=== PATIENT | female | born 1935 | race Caucasian/White ===

== ENCOUNTER 2017-05-12 14:17 | Outpatient (CLI) | payer OTHER ==
[~2017-05-12 14:17] MED LIST: HYDR-4100 PO; LEVO75TA7 PO; LISI-600 PO; LOP600 PO
== END 2017-05-12 19:02 | disposition home or self-care (01) ==
LOC: SRD 14:17
PROVIDERS: ATTEND Family Medicine
DX: S43.421A Sprain of right rotator cuff capsule, initial encounter (principal); M19.011 Primary osteoarthritis, right shoulder; X58.XXXA Exposure to other specified factors, initial encounter; Y93.89 Activity, other specified; Y92.89 Other specified places as the place of occurrence of the external cause; Y99.8 Other external cause status
CPT/HCPCS: 73030

== ENCOUNTER 2017-11-18 10:02 | Outpatient (CLI) | payer OTHER | END 2017-11-18 21:22 | disposition home or self-care (01) | LOC: SMA 10:02 | PROVIDERS: ATTEND Family Medicine | DX: Z12.31 Encounter for screening mammogram for malignant neoplasm of breast (principal) | CPT/HCPCS: G0202 ==

== ENCOUNTER 2018-03-15 08:41 | Outpatient (CLI) | payer OTHER | END 2018-03-15 19:47 | disposition home or self-care (01) | LOC: SUS 08:41 | PROVIDERS: ATTEND Family Medicine | DX: N28.1 Cyst of kidney, acquired (principal); K59.00 Constipation, unspecified; I10 Essential (primary) hypertension; E03.9 Hypothyroidism, unspecified | CPT/HCPCS: 74018; 76700-TC ==

== ENCOUNTER 2018-11-19 10:00 | Outpatient (CLI) | payer OTHER | END 2018-11-19 18:06 | disposition home or self-care (01) | LOC: SMA 10:00 | PROVIDERS: ATTEND Family Medicine | DX: Z12.31 Encounter for screening mammogram for malignant neoplasm of breast (principal) | CPT/HCPCS: 77067 ==

== ENCOUNTER 2019-08-14 15:21 | Emergency (ER) | payer OTHER ==
[2019-08-14 15:26] VITALS: BP_SYST 159
[2019-08-14] MEDS ORDERED: NACL 0.9% 1,000 ML IV ONE (15:38)
[2019-08-14] MEDS ORDERED: ONDANSETRON HCL 4 MG/2 ML VIAL IVP ONE (15:45)
[2019-08-14] MEDS ORDERED: MORPHINE 4 MG/ML INJ. SYRINGE IVP ONE ×2 (15:45→19:00)
[2019-08-14 15:48] LABS: BILIRUBIN,URINE NEGATIVE (NEGATIVE); CLARITY/URINE CLEAR (CLEAR); COLOR,URINE YELLOW (YELLOW); GLUCOSE,URINE NEGATIVE (NEGATIVE); KETONES,URINE NEGATIVE (NEGATIVE); LEUKOCYTE ESTERASE ,URINE 1+ (NEGATIVE); NITRITE, URINE NEGATIVE (NEGATIVE); PROTEIN URINE 1+ (NEGATIVE); UROBILINOGEN,URINE 0.2 (0.2-1.0)
[2019-08-14 15:50] LABS: BLOOD, URINE TRACE (NEGATIVE)
[2019-08-14 15:57] LABS: RBC,URINE 0-3 /HPF (0-3)
[2019-08-14 15:58] LABS: BACTERIA,URINE FEW /HPF (None Seen); MUCUS,URINE None Seen /LPF (None Seen)
[2019-08-14 17:03] LABS: BASOPHILS % (AUTO) 0.5 % (0.0-2.0); EOSINOPHILS % (AUTO) 0.7 % (0.0-4.0); HEMATOCRIT 40.9 % (36-48); HEMOGLOBIN 13.8 g/dL (12.0-16.0); LYMPHOCYTES # (AUTO) 1.3 K/uL (1.0-5.5); LYMPHOCYTES % (AUTO) 33.3 % (20.5-51.5); MEAN CORPUSCULAR HEMOGLOBIN 33 pg (27-31); MEAN CORPUSCULAR HGB CONC 34 % (32-36); MEAN CORPUSCULAR VOLUME 97 fL (79.0-98.0); MONOCYTES # (AUTO) 0.4 K/uL (0.0-1.0); MONOCYTES % (AUTO) 10.5 % (1.7-9.3); NEUTROPHILS # (AUTO) 2.2 K/uL (1.8-7.7); PLATELET COUNT (AUTO) 246 K/uL (130-430); RED BLOOD CELL COUNT(AUTO) 4.24 MIL/uL (4.2-6.2)
[2019-08-14 17:10] LABS: ANION GAP 14 (5-15); CALCIUM 9.5 mg/dL (8.4-11.0); CHLORIDE 100 mmol/L (98-107); CREATININE 1.19 mg/dL (0.55-1.30); GLUCOSE 116 mg/dL (70-99); POTASSIUM 3.7 mmol/L (3.5-5.1); SODIUM SERUM 138 mmol/L (136-145); UREA NITROGEN, BLOOD 16 mg/dL (8-21)
[2019-08-14 17:12] LABS: INR 1.2 (0.8-1.2); PROTHROMBIN TIME 11.6 SECS (9.5-12.5)
[2019-08-14 17:14] LABS: ALANINE AMINOTRANSFERASE 23 U/L (12-78); ALBUMIN 4.2 g/dL (3.4-4.8); AMYLASE 26 U/L (0-100); ASPARTATE AMINOTRANSFERASE 20 U/L (10-37); LIPASE 75 U/L (73-393); TOTAL BILIRUBIN 0.4 mg/dL (0.0-1.0)
[2019-08-14] MEDS ORDERED: cefTRIAXone 1 GM IVPB PREMIX 50 ML IV ONE (18:30)
[2019-08-14 19:50] VITALS: BP_SYST 148
== END 2019-08-14 19:50 | disposition home or self-care (01) ==
LOC: SED 15:21
DX: K57.90 Diverticulosis of intestine, part unspecified, without perforation or abscess without bleeding (principal); N39.0 Urinary tract infection, site not specified; E78.00 Pure hypercholesterolemia, unspecified; I10 Essential (primary) hypertension; Z79.899 Other long term (current) drug therapy
CPT/HCPCS: 36415; 71045; 74176; 80053; 81000; 82150; 82550; 83605; 83690; 84484; 85025; 85610; 85730; 87040; 87086; 93005; 96365; 96375; 96376; 99284; J0696; J2270; J2405; J7030

== ENCOUNTER 2019-08-27 15:37 | Inpatient (IN) | payer OTHER ==
[~2019-08-27] VITALS: Ht 160 cm; Wt 59.0 kg
[2019-08-27 16:21] VITALS: BP_SYST 148
[2019-08-27] MEDS ORDERED: SIMETHICONE 80 MG TAB.CHEW PO ONE (17:00)
[2019-08-27 17:51] LABS: BASOPHILS % (AUTO) 0.3 % (0.0-2.0); EOSINOPHILS % (AUTO) 0.6 % (0.0-4.0); HEMATOCRIT 37.5 % (36-48); HEMOGLOBIN 12.9 g/dL (12.0-16.0); LYMPHOCYTES # (AUTO) 1.1 K/uL (1.0-5.5); LYMPHOCYTES % (AUTO) 25.1 % (20.5-51.5); MEAN CORPUSCULAR HEMOGLOBIN 33 pg (27-31); MEAN CORPUSCULAR HGB CONC 34 % (32-36); MEAN CORPUSCULAR VOLUME 97 fL (79.0-98.0); MONOCYTES # (AUTO) 0.5 K/uL (0.0-1.0); MONOCYTES % (AUTO) 12.1 % (1.7-9.3); NEUTROPHILS # (AUTO) 2.6 K/uL (1.8-7.7); NEUTROPHILS % (AUTO) 61.9 % (40.0-70.0); PLATELET COUNT (AUTO) 238 K/uL (130-430); RED BLOOD CELL COUNT(AUTO) 3.88 MIL/uL (4.2-6.2); RED CELL DISTRIBUTION WIDTH 13.9 % (9.0-15.0); WHITE BLOOD COUNT (AUTO) 4.2 K/uL (4.8-10.8)
[2019-08-27 18:08] LABS: ALANINE AMINOTRANSFERASE 30 U/L (12-78); ALBUMIN 3.8 g/dL (3.4-4.8); ANION GAP 8 (5-15); ASPARTATE AMINOTRANSFERASE 23 U/L (10-37); CHLORIDE 97 mmol/L (98-107); CREATININE 0.93 mg/dL (0.55-1.30); GLUCOSE 137 mg/dL (70-99); LIPASE 397 U/L (73-393); POTASSIUM 4.2 mmol/L (3.5-5.1); SODIUM SERUM 129 mmol/L (136-145); TOTAL BILIRUBIN 0.4 mg/dL (0.0-1.0); UREA NITROGEN, BLOOD 11 mg/dL (8-21)
[2019-08-27 18:24] LABS: CALCIUM 8.9 mg/dL (8.4-11.0)
[2019-08-27] MEDS ORDERED: PIPERACILLIN/TAZO 3.375 GM in NS 50 ML IV ONE (18:30)
[2019-08-27] MEDS ORDERED: VANCOMYCIN HCL 1,000 MG in NS 250 ML IV ONE (18:30)
[2019-08-27] MEDS ORDERED: NACL 0.9% 1,000 ML IV ONE (18:30)
[2019-08-27] MEDS ORDERED: hydrALAZINE HCL 20 MG/ML VIAL IVP ONE (18:45)
[2019-08-27] MEDS ORDERED: MORPHINE 4 MG/ML INJ. SYRINGE IVP ONE (18:45)
[2019-08-27] MEDS ORDERED: VANCOMYCIN HCL 1000 MG/VIAL IV ONE (18:48)
[2019-08-27] MEDS ORDERED: PIPERACILLIN/TAZOBACTAM 3.375 GM/VIAL (ZOSYN) IV ONE (18:48)
[2019-08-27] MEDS ORDERED: NAPR-1172 PO (19:48)
[2019-08-27] MEDS ORDERED: METR500T PO (19:48)
[2019-08-27] MEDS ORDERED: CLOP75TA32 PO (19:48)
[2019-08-27] MEDS ORDERED: ASPI-1155 PO (19:48)
[2019-08-27] MEDS ORDERED: AMLO5TAB4 PO (19:48)
[2019-08-27] MEDS ORDERED: CIPR-211 PO (19:48)
[2019-08-27] MEDS: NACL 0.9% 1,000 ML IV SCH (20:09)
[2019-08-27 20:45] VITALS: BP_SYST 149
[2019-08-27] MEDS ORDERED: ALBUTEROL SULFATE 0.083% 2.5 MG/3 ML VIAL.NEB INH PRN (20:45)
[2019-08-27] MEDS ORDERED: ACETAMINOPHEN 325 MG TABLET PO PRN (20:45)
[2019-08-27] MEDS ORDERED: LEVO75TA7 PO (21:01)
[2019-08-27] MEDS: PANTOPRAZOLE SODIUM 40 MG/VIAL (PROTONIX) IVP SCH (21:26)
[2019-08-27] MEDS ORDERED: PANTOPRAZOLE SODIUM 40 MG/VIAL (PROTONIX) ONE (21:36)
[2019-08-27] MEDS ORDERED: ONDANSETRON HCL 4 MG/2 ML VIAL IVP PRN (22:30)
[2019-08-28] VITALS (7 sets, daily range): BP systolic 133–154
[2019-08-28 06:41] LABS: BASOPHILS % (AUTO) 0.6 % (0.0-2.0); EOSINOPHILS # (AUTO) 0.1 K/uL (0.0-0.4); EOSINOPHILS % (AUTO) 1.3 % (0.0-4.0); HEMATOCRIT 37.7 % (36-48); HEMOGLOBIN 12.9 g/dL (12.0-16.0); LYMPHOCYTES # (AUTO) 1.4 K/uL (1.0-5.5); LYMPHOCYTES % (AUTO) 31.9 % (20.5-51.5); MEAN CORPUSCULAR HEMOGLOBIN 33 pg (27-31); MEAN CORPUSCULAR HGB CONC 34 % (32-36); MEAN CORPUSCULAR VOLUME 97 fL (79.0-98.0); MONOCYTES # (AUTO) 0.5 K/uL (0.0-1.0); MONOCYTES % (AUTO) 11.3 % (1.7-9.3); NEUTROPHILS # (AUTO) 2.5 K/uL (1.8-7.7); NEUTROPHILS % (AUTO) 54.9 % (40.0-70.0); PLATELET COUNT (AUTO) 228 K/uL (130-430); RED BLOOD CELL COUNT(AUTO) 3.91 MIL/uL (4.2-6.2); RED CELL DISTRIBUTION WIDTH 13.6 % (9.0-15.0); WHITE BLOOD COUNT (AUTO) 4.5 K/uL (4.8-10.8)
[2019-08-28 07:47] LABS: ALANINE AMINOTRANSFERASE 28 U/L (12-78); ALBUMIN 3.5 g/dL (3.4-4.8); ANION GAP 9 (5-15); ASPARTATE AMINOTRANSFERASE 25 U/L (10-37); CALCIUM 8.4 mg/dL (8.4-11.0); CHLORIDE 107 mmol/L (98-107); CREATININE 0.83 mg/dL (0.55-1.30); GLUCOSE 105 mg/dL (70-99); LIPASE 210 U/L (73-393); POTASSIUM 3.6 mmol/L (3.5-5.1); SODIUM SERUM 140 mmol/L (136-145); TOTAL BILIRUBIN 0.5 mg/dL (0.0-1.0); UREA NITROGEN, BLOOD 7 mg/dL (8-21)
[2019-08-28] MEDS: NACL 0.9% 1,000 ML IV SCH ×2 (08:20→10:00)
[2019-08-28 08:22] LABS: TRIGLYCERIDES 53 mg/dL (30-150)
[2019-08-28 08:23] LABS: CHOLESTEROL 124 mg/dL (<200); HDL CHOLESTEROL 61 mg/dL (>55); LDL CHOLESTEROL 44 mg/dL (<100)
[2019-08-28] MEDS: PANTOPRAZOLE SODIUM 40 MG/VIAL (PROTONIX) IVP SCH (08:57)
[2019-08-28] MEDS: LEVOTHYROXINE SODIUM 0.075 MG TABLET PO SCH (08:58)
[2019-08-28] MEDS: GEMFIBROZIL 600 MG TABLET (LOPID) PO SCH ×2 (08:58→21:11)
[2019-08-28] MEDS: MORPHINE 2 MG/ML INJ. SYRINGE IVP PRN ×2 (08:58→18:05)
[2019-08-28] MEDS: amLODIPine BESYLATE 5 MG TABLET PO SCH (08:59)
[2019-08-28] MEDS ORDERED: CLOPIDOGREL BISULFATE 75 MG TABLET PO SCH (09:00)
[2019-08-28] MEDS ORDERED: ASPIRIN 81 MG TAB.CHEW PO SCH (09:00)
[2019-08-28] MEDS ORDERED: metroNIDAZOLE 500 mg/NS 100 ML IV ONE (12:00)
[2019-08-28] MEDS: LEVOFLOXACIN 250 MG/D5W 50 ML IV SCH (12:03)
[2019-08-28] MEDS: metroNIDAZOLE 500 mg/NS 100 ML IV SCH (21:37)
[2019-08-29 01:07] VITALS: BP_SYST 152
[2019-08-29] MEDS: NACL 0.9% 1,000 ML IV SCH ×2 (02:25→20:34)
[2019-08-29] MEDS: metroNIDAZOLE 500 mg/NS 100 ML IV SCH ×3 (05:25→22:16)
[2019-08-29 07:26] LABS: BASOPHILS % (AUTO) 0.6 % (0.0-2.0); HEMOGLOBIN 12.4 g/dL (12.0-16.0); LYMPHOCYTES # (AUTO) 1.2 K/uL (1.0-5.5); LYMPHOCYTES % (AUTO) 29.8 % (20.5-51.5); MEAN CORPUSCULAR HEMOGLOBIN 33 pg (27-31); MEAN CORPUSCULAR HGB CONC 35 % (32-36); MEAN CORPUSCULAR VOLUME 97 fL (79.0-98.0); MONOCYTES # (AUTO) 0.5 K/uL (0.0-1.0); MONOCYTES % (AUTO) 11.9 % (1.7-9.3); NEUTROPHILS # (AUTO) 2.2 K/uL (1.8-7.7); NEUTROPHILS % (AUTO) 56.7 % (40.0-70.0); PLATELET COUNT (AUTO) 212 K/uL (130-430); RED BLOOD CELL COUNT(AUTO) 3.73 MIL/uL (4.2-6.2); RED CELL DISTRIBUTION WIDTH 13.4 % (9.0-15.0); WHITE BLOOD COUNT (AUTO) 3.9 K/uL (4.8-10.8)
[2019-08-29 07:34] LABS: PROTHROMBIN TIME 10.4 SECS (9.5-12.5)
[2019-08-29 08:00] VITALS: BP_SYST 158
[2019-08-29 08:02] LABS: ALANINE AMINOTRANSFERASE 27 U/L (12-78); ALBUMIN 3.2 g/dL (3.4-4.8); ANION GAP 11 (5-15); ASPARTATE AMINOTRANSFERASE 24 U/L (10-37); CHLORIDE 108 mmol/L (98-107); CREATININE 0.71 mg/dL (0.55-1.30); GLUCOSE 130 mg/dL (70-99); LIPASE 192 U/L (73-393); POTASSIUM 3.2 mmol/L (3.5-5.1); SODIUM SERUM 139 mmol/L (136-145); TOTAL BILIRUBIN 0.4 mg/dL (0.0-1.0); UREA NITROGEN, BLOOD 7 mg/dL (8-21)
[2019-08-29] MEDS: PANTOPRAZOLE SODIUM 40 MG/VIAL (PROTONIX) IVP SCH (08:20)
[2019-08-29] MEDS: GEMFIBROZIL 600 MG TABLET (LOPID) PO SCH ×2 (08:21→20:25)
[2019-08-29] MEDS: LEVOTHYROXINE SODIUM 0.075 MG TABLET PO SCH (08:21)
[2019-08-29] MEDS: MORPHINE 2 MG/ML INJ. SYRINGE IVP PRN (08:21)
[2019-08-29] MEDS: amLODIPine BESYLATE 5 MG TABLET PO SCH (08:21)
[2019-08-29] MEDS ORDERED: POTASSIUM CHLORIDE 20 MEQ/PKT PACKET PO ONE ×2 (09:30→13:30)
[2019-08-29] MEDS: LEVOFLOXACIN 250 MG/D5W 50 ML IV SCH (11:24)
[2019-08-29 11:33] VITALS: BP_SYST 143
[2019-08-29 15:36] VITALS: BP_SYST 146
[2019-08-29] MEDS ORDERED: BISACODYL 5 MG TABLET.DR (DULCOLAX) PO ONE (17:00)
[2019-08-29] MEDS ORDERED: GOLYTELY / COLYTE SOLUTION 4 LITERS PO ONE (18:00)
[2019-08-29 19:00] VITALS: BP_SYST 150
[2019-08-29 20:00] VITALS: BP_SYST 114; BP_SYST 150
[2019-08-30 01:29] VITALS: BP_SYST 140
[2019-08-30 05:20] VITALS: BP_SYST 169
[2019-08-30] MEDS: metroNIDAZOLE 500 mg/NS 100 ML IV SCH ×2 (05:23→13:35)
[2019-08-30] MEDS ORDERED: MIDAZOLAM HCL 5 MG/5 ML VIAL ONE (06:38)
[2019-08-30] MEDS ORDERED: SIMETHICONE 40 MG/0.6 ML ML ONE (06:38)
[2019-08-30] MEDS: fentaNYL CITRATE/PF 100 MCG/2 ML AMP ONE ×2 (06:38→07:10)
[2019-08-30] MEDS: MIDAZOLAM HCL 5 MG/5 ML VIAL ONE ×3 (06:38→07:18)
[2019-08-30 07:15] LABS: PROTHROMBIN TIME 10.5 SECS (9.5-12.5)
[2019-08-30 08:40] VITALS: BP_SYST 169
[2019-08-30] MEDS: LEVOTHYROXINE SODIUM 0.075 MG TABLET PO SCH (08:46)
[2019-08-30] MEDS: amLODIPine BESYLATE 5 MG TABLET PO SCH (08:46)
[2019-08-30] MEDS: GEMFIBROZIL 600 MG TABLET (LOPID) PO SCH (08:47)
[2019-08-30] MEDS: PANTOPRAZOLE SODIUM 40 MG/VIAL (PROTONIX) IVP SCH (08:47)
[2019-08-30] MEDS ORDERED: CLOPIDOGREL BISULFATE 75 MG TABLET PO ONE (09:30)
[2019-08-30] MEDS: LEVOFLOXACIN 250 MG/D5W 50 ML IV SCH (11:08)
[2019-08-30 12:30] VITALS: BP_SYST 142
[2019-08-30 16:19] VITALS: BP_SYST 140
[2019-08-30 16:30] VITALS: BP_SYST 135
[2019-08-30] MEDS ORDERED: METR500T PO (18:59)
[2019-08-30] MEDS ORDERED: POLY17PO4 PO (19:00)
[2019-08-30] MEDS ORDERED: LEVO750T45 PO (19:00)
[2019-08-31] MEDS ORDERED: CLOPIDOGREL BISULFATE 75 MG TABLET PO SCH (09:00)
== END 2019-08-30 19:25 | disposition home or self-care (01) | DRG 393 ==
LOC: SED 15:37 → SMU 18:54 → STU 08-29 10:26 → SMU 08-29 12:31
PROVIDERS: ADMIT Internal Medicine Hospice and Palliative Medicine; ATTEND Internal Medicine Hospice and Palliative Medicine
PROC: 0DBL8ZZ Excision of Transverse Colon, Via Natural or Artificial Opening Endoscopic (ICD-10-PCS; 2019-08-30)
PROC: 0DBM8ZX Excision of Descending Colon, Via Natural or Artificial Opening Endoscopic, Diagnostic (ICD-10-PCS; 2019-08-30)
PROC: 0DBL8ZX Excision of Transverse Colon, Via Natural or Artificial Opening Endoscopic, Diagnostic (ICD-10-PCS; 2019-08-30)
PROC: 0DBM8ZZ Excision of Descending Colon, Via Natural or Artificial Opening Endoscopic (ICD-10-PCS; principal; 2019-08-30 11:00)
DX: D12.4 Benign neoplasm of descending colon (principal); K85.90 Acute pancreatitis without necrosis or infection, unspecified; K58.9 Irritable bowel syndrome, unspecified; D12.3 Benign neoplasm of transverse colon; K52.9 Noninfective gastroenteritis and colitis, unspecified; E03.9 Hypothyroidism, unspecified; E78.5 Hyperlipidemia, unspecified; I10 Essential (primary) hypertension; K59.00 Constipation, unspecified; K64.4 Residual hemorrhoidal skin tags; K64.8 Other hemorrhoids; K76.89 Other specified diseases of liver; Z82.49 Family history of ischemic heart disease and other diseases of the circulatory system; Z86.73 Personal history of transient ischemic attack (TIA), and cerebral infarction without residual deficits; Z87.19 Personal history of other diseases of the digestive system; Z79.899 Other long term (current) drug therapy; Z90.49 Acquired absence of other specified parts of digestive tract
CPT/HCPCS: 36415; 45380; 80053; 80061; 82378; 83605; 83690-TC; 84484; 85025; 85610-TC; 85730-TC; 87040-TC; 87086; 87230-TC; 88305; 89055; 96365; 96366; 96367; 96375; 99285; C9113; J0360; J1956; J2250; J2270; J2405; J2543; J3010; J3370; J3490; J7030

== ENCOUNTER 2019-11-21 08:40 | Outpatient (CLI) | payer OTHER ==
[~2019-11-21 08:40] MED LIST changes: +AMLO5TAB4 PO; +ASPI-1155 PO; +CLOP75TA32 PO; -HYDR-4100 PO; +LEVO750T45 PO; -LISI-600 PO; +METR500T PO; +POLY17PO4 PO
== END 2019-11-21 20:47 | disposition home or self-care (01) ==
LOC: SMA 08:40
PROVIDERS: ATTEND Family Medicine
DX: Z12.31 Encounter for screening mammogram for malignant neoplasm of breast (principal)
CPT/HCPCS: 77067

== ENCOUNTER 2020-06-20 16:37 | Emergency (ER) | payer OTHER ==
[~2020-06-20] VITALS: Ht 160 cm; Wt 64.9 kg
[2020-06-20 16:46] VITALS: BP_SYST 191
--- NOTE | 2020-06-20 16:50 | NUR ---
Patient to ER bed 3 to gown for evaluation. Side rails up. Report given to DELFINA Ayala.
[2020-06-20] MEDS ORDERED: LIDOCAINE/EPI 1% 1:100000 20 ML VIAL INJ ONE (17:00)
--- NOTE | 2020-06-20 17:00 | NUR ---
Patient presented to ER C/O tongue laceration. Patient A&Ox4, tongue laceration oozing, patient ambulatory to ER, pain 04/01, denies N/V/D. Patient states she bit down on tongue caused laceration today while eating lunch.
--- NOTE | 2020-06-20 17:05 | NUR ---
ER Dr. Bruno at bedside examining patient.
--- NOTE | 2020-06-20 17:15 | NUR ---
Patient has a 1 cm laceration to tongue. Dr. Bruno applied sutures using sterile technique. Edges well approximated. Site cleansed with sterile water. No bleeding noted. Pt tolerated well.
[2020-06-20 18:10] VITALS: BP_SYST 174
--- NOTE | 2020-06-20 18:10 | NUR ---
Patient given written and verbal discharge instructions and verbalizes understanding. ER MD discussed with patient the results and treatment provided. Patient in stable condition. ID arm band removed. No Rx given. Patient educated on pain management and to follow up with PMD. Pain Scale 2/10. Opportunity for questions provided and answered. Medication side effect fact sheet provided.
== END 2020-06-20 18:10 | disposition home or self-care (01) ==
LOC: SED 16:37
DX: S01.512A Laceration without foreign body of oral cavity, initial encounter (principal); E07.9 Disorder of thyroid, unspecified; I10 Essential (primary) hypertension; E78.00 Pure hypercholesterolemia, unspecified; Z79.899 Other long term (current) drug therapy; Z79.82 Long term (current) use of aspirin
CPT/HCPCS: 99284